=== PATIENT | male | born 1945 | race Caucasian/White ===

== ENCOUNTER → 2021-05-04 02:47 | Outpatient (CLI) | payer MEDICARE, SELFPAY ==
[2021-05-04 17:30] LABS: SARS-CoV-2 RNA PCR Negative
== END ==
PROVIDERS: PCP Nurse Practitioner Adult Health; Visit Provider Nurse Practitioner Adult Health
DX: R09.81 Nasal congestion (principal); Z20.822 Contact with and (suspected) exposure to COVID-19
CPT/HCPCS: C9803; U0003; U0005

== ENCOUNTER 2022-11-11 12:23 | Outpatient (CLI) | payer MEDICARE, SELFPAY ==
--- NOTE | ~2022-11-11 | MR_ITS ---
EXAMINATION: MR shoulder RT wo con DATE: 11/11/2022 13:07 INDICATION: M25.511 - Pain in right shoulder . TECHNIQUE: Magnetic resonance imaging (MRI) of the right shoulder was performed without intravenous c ontrast. Sequences included axial PD-weighted FS FSE, coronal oblique PD-weighted FS FSE and T2-weigh luciano FS FSE, and sagittal oblique T2-weighted FS FSE and T1-weighted FSE. COMPARISON: None. FINDINGS: Coracoacromial arch: No subacromial or subcoracoid narrowing. Moderate AC joint hypertrophy. No significant lateral downsl oping of the type I acromion Rotator cuff: Full-thickness tear of the supraspinatus, with 13 mm retraction. Thinning of the infraspinous tendon. Abnormal signal at the musculotendinous junction of the infraspinous tendon. Infraspinatus and supra spinatus atrophy. Intrasubstance and partial-thickness tears of the subscapularis. Teres minor are in tact. Biceps tendon and glenoid labrum: Partial subluxation of the long head of biceps tendon which dissects into the subscapularis muscle de monstrable type tear of the proximal aspect of the long head of biceps tendon. Considerable degenerat kayla change involving the glenoid labrum. Posterior labral tear. Fluid: No significant fluid collections Bones/cartilage: Moderate subcortical cystic changes in the anterolateral humeral head. No suspicious marrow signal. IMPRESSION: 1. Full-thickness supraspinous tear with 13 mm retraction and fatty atrophy. 2. Intrasubstance type tear of the infraspinatus, with fatty atrophy. 3. Posterior labral tear. 4. Longitudinal type tear of the long head of biceps tendon. 5. Partial long head of biceps tendon subluxation, with partial and intrasubstance type tears of the subscapularis. Reviewed, dictated and finalized at location K. IMPRESSION: 1. Full-thickness supraspinous tear with 13 mm retraction and fatty atrophy. 2. Intrasubstance type tear of the infraspinatus, with fatty atrophy. 3. Posterior labral tear. 4. Longitudinal type tear of the long head of biceps tendon. 5. Partial long head of biceps tendon subluxation, with partial and intrasubsta nce type tears of the subscapularis.
== END 2022-11-11 12:24 | disposition home or self-care (01) ==
PROVIDERS: PCP Family Medicine; Visit Provider Nurse Practitioner
DX: S43.491A Other sprain of right shoulder joint, initial encounter (principal); X58.XXXA Exposure to other specified factors, initial encounter; S46.111A Strain of muscle, fascia and tendon of long head of biceps, right arm, initial encounter; M75.121 Complete rotator cuff tear or rupture of right shoulder, not specified as traumatic
CPT/HCPCS: 73221

== ENCOUNTER 2022-11-30 13:32 | Outpatient (CLI) | payer MEDICARE, SELFPAY ==
--- NOTE | ~2022-11-30 | XR_ITS ---
EXAMINATION: XR lumbar spine 2-3V DATE: 11/30/2022 13:45 INDICATION: Low back pain TECHNIQUE: Anteroposterior and lateral views of the lumbar spine, and cone-down lateral view of the l umbosacral junction were obtained. COMPARISON: Lumbar spine MR dated 04/10/2017 FINDINGS: No significant change in 12 degrees lumbar levoscoliosis and a mild upper lumbar kyphosis. Vertebral body heights are normal. Severe disc height loss at L4-L5 and moderate to severe disc height loss at L2-L3, L3-L4 and L5-S1. Moderate disc height loss at T12-L1 and L1-L2. Moderate to severe lower lumba r predominant facet osteoarthritis. Mild bilateral hip and sacroiliac osteoarthritis. Multiple surgic al clips in the pelvis suggesting bilateral pelvic lymph node dissection. IMPRESSION: 1. No significant change in mild lumbar levoscoliosis with severe spondylosis. Reviewed, dictated and finalized at location A.
[2022-11-30 18:57] LABS: Appearance Urine Clear (Clear); Bilirubin Urine Negative (Negative); Blood Urine Negative (Negative); Color Urine Yellow (Yellow); Glucose Urine UA Negative (Negative); Ketones Urine Negative (Negative); Leukocyte Esterase Ur Negative LEU/UL (NEGATIVE); Nitrate Urine Negative (Negative); Protein Urine Negative (Negative); Specific Grav Ur 1.013 (1.001-1.035); Urobilinogen Urine 0.2 mg/dL (<2.0)
[2022-11-30 19:00] LABS: Add Urine Microscopic? NO
== END 2022-11-30 13:33 | disposition home or self-care (01) ==
PROVIDERS: PCP Family Medicine; Visit Provider Nurse Practitioner
DX: M54.50 Low back pain, unspecified (principal); R10.9 Unspecified abdominal pain
CPT/HCPCS: 72100; 81003

== ENCOUNTER 2023-08-28 13:02 | Outpatient (CLI) | payer MEDICARE, SELFPAY ==
--- NOTE | ~2023-08-28 | XR_ITS ---
EXAMINATION: XR lumbar spine 2-3V DATE: 08/28/2023 13:19 INDICATION: Low back pain TECHNIQUE: Anteroposterior and lateral views of the lumbar spine, and cone-down lateral view of the l umbosacral junction were obtained. COMPARISON: 11/30/2022 FINDINGS: Bone alignment is normal. There is no fracture. The vertebral body heights are maintained. Lumbar levoscoliosis is unchanged. There is severe loss of intervertebral disc space height throughou t the lumbar spine. There is severe facet joint osteoarthritis of the mid and lower lumbar spine. The re is no fracture. Surgical clips are again noted in the pelvis. IMPRESSION: 1. Severe lumbar spondylosis without acute findings or significant interval change. Reviewed, dictated and finalized at location L. 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 Severe lumbar spondylosis without acute findings or significant interval loida nge.
== END 2023-08-28 13:03 | disposition home or self-care (01) ==
PROVIDERS: PCP Family Medicine; Visit Provider Family Medicine
DX: M47.896 Other spondylosis, lumbar region (principal)
CPT/HCPCS: 72100

== ENCOUNTER 2024-12-16 15:35 | Outpatient (CLI) | payer MEDICARE, SELFPAY ==
--- NOTE | ~2024-12-16 | XR_ITS ---
HISTORY: M25.569 - Pain in unspecified knee COMPARISON: None TECHNIQUE: 3 views of the right knee were performed FINDINGS: No acute or subacute fracture. Medial and lateral tibiofemoral joint space narrowing is identified. A large suprapatellar joint effusion is identified. The infrapatellar joint space is clear. Ossification of the insertion of the quadriceps tendon is identified. The lateral femoral notch measu res 1.8 mm, which is abnormally deep for which an anterior cruciate ligament tear is suspected. IMPRESSION: Deep lateral femoral notch sign, as with a large suprapatellar joint effusion for which an anterior cruciate ligament tear is suspected and for which MRI examination is recommended. Reviewed, dictated and finalized at location A. IMPRESSION: Deep lateral femoral notch sign, as with a large suprapatellar slava nt effusion for which an anterior cruciate ligament tear is suspected and for w psychiatrich MRI examination is recommended.
--- NOTE | ~2024-12-16 | XR_ITS ---
HISTORY: M25.569 - Pain in unspecified knee COMPARISON: None TECHNIQUE: 2 views of the right tibia and fibula were performed FINDINGS: No acute or subacute fracture. The alignment is maintained. Disorganized, irregular, periosteal reaction is identified within the proximal shaft of the medial ti yessy, a nonspecific finding. Soft tissues are otherwise unremarkable without radiopaque foreign body or significant calcification. Age-appropriate mineralization. IMPRESSION: No acute fracture or dislocation. Reviewed, dictated and finalized at location A.
== END 2024-12-16 15:36 | disposition home or self-care (01) ==
LOC: MICIMG 15:38
PROVIDERS: PCP Family Medicine; Visit Provider Family Medicine
DX: M25.561 Pain in right knee (principal); M79.604 Pain in right leg
CPT/HCPCS: 73562; 73590

== ENCOUNTER 2024-12-19 15:37 | Outpatient (CLI) | payer MEDICARE, SELFPAY ==
--- NOTE | ~2024-12-19 | US_ITS ---
RIGHT LOWER EXTREMITY VENOUS ULTRASOUND Ordering provider: Miky Martini MD History: . R79.89 - Other specified abnormal findings of blood chemi... . Comparison: None. FINDINGS: --COMMON FEMORAL: Patent and free of thrombus. Normal compressibility, phasic flow and augmentation. --PROXIMAL SUPERFICIAL FEMORAL: Patent and free of thrombus. Normal compressibility, phasic flow and augmentation. --DISTAL SUPERFICIAL FEMORAL: Patent and free of thrombus. Normal compressibility, phasic flow and au gmentation. --POPLITEAL: Patent and free of thrombus. Normal compressibility, phasic flow and augmentation. --POSTERIOR TIBIAL: Patent and free of thrombus. Normal compressibility, phasic flow and augmentation . IMPRESSION: Negative right lower extremity venous US. No deep vein thrombosis. Reviewed, dictated and finalized at location A.
== END 2024-12-19 15:38 | disposition home or self-care (01) ==
PROVIDERS: PCP Family Medicine; Visit Provider Family Medicine
DX: R79.89 Other specified abnormal findings of blood chemistry (principal)
CPT/HCPCS: 93971

== ENCOUNTER 2024-12-29 10:21 | Outpatient (CLI) | payer MEDICARE, SELFPAY ==
--- NOTE | ~2024-12-29 | MR_ITS ---
MRI of the right knee Clinical history: ACL sprain Technique: Coronal proton density and proton density-weighted images, sagittal proton-density and T2 fat-sat images, and axial proton-density fat-saturated images were acquired. Findings: Anterior and posterior cruciate ligaments are intact. Medial collateral ligament and the la teral collateral ligament complex are intact. Popliteus tendon is intact. There is probable tearing of the body segment of the lateral meniscus. Possible focal tear of the maria fernanda e edge of the body segment of the medial meniscus. There is extensive grade IV chondromalacia of the patellar apex extending along the medial facet. The re is mild chondromalacia along lateral patellar facet. There is diffuse moderate to high-grade chond romalacia of the femoral trochlea. There is mild chondral thinning in the medial lateral compartment. Extensor mechanism is intact. Moderate to large joint effusion present. Minimal Pino's cyst. Impression: Probable tear of the body segment lateral meniscus. Questionable focal free edge of the body segment of the medial meniscus. Advanced degenerative change of the patellofemoral compartment, as above. Mild degenerative change of the medial and lateral compartment. Moderate to large joint effusion. Minimal Pino's cyst. Reviewed, dictated and finalized at location . Impression: Probable tear of the body segment lateral meniscus. Questionable focal free edg e of the body segment of the medial meniscus. Advanced degenerative change of the patellofemoral compartment, as above. Mild degenerative change of the medial and lateral compartment. Moderate to large joint effusion. Minimal Pino's cyst.
== END 2024-12-29 10:22 | disposition home or self-care (01) ==
LOC: GOSHIMG 10:21
PROVIDERS: PCP Family Medicine; Visit Provider Family Medicine
DX: M17.11 Unilateral primary osteoarthritis, right knee (principal); M25.461 Effusion, right knee; M71.21 Synovial cyst of popliteal space [Baker], right knee
CPT/HCPCS: 73721

== ENCOUNTER 2025-03-17 08:35 | Outpatient (CLI) | payer MEDICARE, SELFPAY ==
--- OUTSIDE RECORDS SUMMARY | 2025-03-17 09:33 | XMS_ITS | Clinical Summary ---
Author Organization [facility] Address [address] [place] [address] Care Team Providers Care Lunchroom Attendant Name Role Phone Miky Martini MD Primary Care Provider [phone] Allergies No known active allergies Medications fluticasone propionate 50 MCG/ACT nasal spray 1 spray by Each Nostril route as needed. 09/18/2019 Active pravastatin 20 MG tablet Take 1 tablet (20 mg total) by mouth nightly at bedtime. Active BONE STIMULATOR, DME,Indications :Pseudoarthrosi s of cervical spine, initial encounter ([facility]),S/P cervical spinal fusion Wear 4 hours daily. Can break up into multiple sessions totaling 4 hours. 1 Device 10/02/2022 Active benazepril-hydr oCHLOROthiazide (LOTENSIN HCT) 20-12.5 MG tablet Take 1 tablet by mouth daily. 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 Acute right-sided low back pain without sciatica 02/16/2020 Family History Medical History Relation Comments No Known Problems Brother 1 Hypertension Father Stroke Father Diabetes Mother Hypertension Mother Stroke Mother No Known Problems Sister 1 Relation Status Comments Brother 1 Alive Brother 2 Alive Brother 3 Alive Father Mother Sister 1 Alive Sister 2 Alive Son 1 Alive Son 2 Alive Social History Tobacco Use Types Packs/Day Years Used Date Smoking Tobacco: Never Smokeless Tobacco: Never Tobacco Cessation:Counseling Given: Not Answered Alcohol Use Standard Drinks/Week Comments Not Currently 0 (1 standard drink = 0.6 oz pur e alcohol) Exercise Vital Sign Answer Date Recorde d On average, how many days pe r week do you engage in moderate to strenuous exercise (like a brisk walk)? 0 days 02/17/2020 On average, how many minutes do you engage in exercise at this level? 0 min 02/17/2020 Education Answer Date Recorded What is the highest level of school you have completed or the highest degree you have received? High school graduate 02/17/2020 Sex and Gender Information Value Date Recorded Sex Assigned at Not on file Legal Sex Male 3:18 PM CDT Gender Identity Not on file Sexual Orientation Not on file Occupation Industry Job Start Date Job End Date Not on file Not on file Not on file Not on file Last Filed Vital Signs Vital Sign Reading Time Taken Comments Blood Pressure 143/68 01/14/2024 5:16 PM CDT Pulse 73 01/14/2024 5:16 PM CDT Temperature 36.6 C (97.9 F) 01/14/2024 3:45 PM CDT Respiratory Rate 20 01/14/2024 5:16 PM CDT Oxygen Saturation 98% 01/14/2024 5:16 PM CDT Inhaled Oxygen Concentration - - Weight 85.8 kg (189 lb 3.2 oz) 01/14/2024 3:45 P M CDT Height 177.8 cm (5' 10) 01/14/2024 3:45 PM CDT Body Mass Index 27.15 01/14/2024 3:45 PM CDT Plan of Treatment Health Maintenance Due Date Last Done Comments Hepatitis C 1964 DTaP, Tdap and Td Vaccines ( 1 - Tdap) 1965 Pneumococcal Vaccine: 50+ Years (1 of 1 - PCV) 1996 Zoster Vaccines (1 of 2) 1996 Annual Medicare Wellness Visit 11/30/2011 RSV Immunization or 60+ Years (1 - 1-dose 75+ series) 2021 PHQ-2 (Physician [place]) 07/02/2024 COVID-19 Vaccine (3 - 2025-2 6 season) 2025 09/11/2020, 08/13/2020 Meningococcal B Vaccine Aged Out No l onger eligible based on patient's age to complete this topic Meningococcal Vaccine Aged Out No dianna gisela eligible based on patient's age to complete this topic RSV Immunizations Under 20 Months Aged Out No longer eligible b ased on patient's age to complete this topic Goals Goal Patient Goal Type Associated Problems Recent Progress Patient-Stated? Author Health - patient able to perform ADLs independently General No Marylou Das, RN Monitor - able to maintain pain control General No Marylou Das, RN Medical Devices Implanted Type Area Automobile Contract Clerk Device Identifier Shelf Expiration Date Model / Serial / Lot Cadacia Cervical Interbody Size [id number], 7 Deg Implanted:Qty : 1 on 09/14/2021 by Viktor Ortega MD at [facility] N/A: Spine Cervical 12/11/2025 [id number] / / [id number] Viable Bone Matrix - Spine Implanted:Qty : 1 on 09/14/2021 by Viktor Ortega MD at [facility] N/A: Spine Cervical [employer]INO [employer] - DIV NINO HÉCTOR 12/04/2023 [id number] / / [id number] [place] Cervical Interbody, Size [id number], 7 Deg Implanted:Qty : 1 on 09/14/2021 by Viktor Ortega MD at [facility] N/A: Spine Cervical 08/18/2025 [id number] / / [id number] 42mm Plate Implanted:Qty : 1 on 09/14/2021 by Viktor Ortega MD at [facility] N/A: Spine Cervical [id number] / / 4.0x18mm Screws Implanted:Qty : 6 on 09/14/2021 by Viktor Ortega MD at [facility] N/A: Spine Cervical [id number] / / Insurance MEDICARE AETNA Advance Directives * Full Code (Latest Code Status on File) Date Activated Date Inactivated Comments 09/14/2021 3:03 PM 09/15/2021 8:44 PM Care Teams Lunchroom Attendant Relationship Specialty Start Date End Date Miky Martini MD [address] [place] [address] PCP - General FAMILY PRACTICE 09/20/22
--- OUTSIDE RECORDS SUMMARY | 2025-03-17 09:33 | XMS_ITS | Clinical Summary ---
Author Organization [facility] [address] Address [address] [place] [address] Care Team Providers Care Taper Printed Circuit Layout Name Role Phone Annabel Valdes NP Primary Care Provider Allergies Active Allergy Reactions Criticality Noted Date Comments Moxifloxacin Dizziness Low 12/08/2021 Rosuvastatin Muscle pain Medium 12/08/2021 Medications benazepriL-hydr ochlorothiazide (LOTENSIN HCT) 20-12.5 mg per tablet benazepril 20 mg-hydrochloroth iazide 12.5 mg tablet TAKE 2 TABLETS BY MOUTH ONCE DAILY Active pravastatin (PRAVACHOL) 20 mg tablet pravastatin 20 mg tablet TAKE 1 TABLET BY MOUTH EVERY DAY Active Active Problems Problem Noted Date Diagnosed Date Pharyngoesophageal dysphagia 12/10/2021 Dysphonia 12/10/2021 Hypertension 10/14/2009 Surgical History Surgery Date Site/Laterality Comments PROSTATE SURGERY Prostate Surgery - (Added by TW Conv) CERVICAL DISC SURGERY Medical History Medical History Date Comments Prostate cancer (HCC) Hypertension Family History Medical History Relation Name Comments Cancer Father Diabetes Other 1 Diabetes Mellit - (Added by TW Conv) Stroke Other 2 Stroke Syndrome - (Added by TW Conv) Cancer Other 3 Cancer - (Added by TW Conv) Heart disease Other 4 Heart Disease - (Added by TW Conv) Relation Name Status Comments Father Other 1 Other 2 Other 3 Other 4 Social History Tobacco Use Types Packs/Day Years Used Date Smoking Tobacco: Never Smokeless Tobacco: Never Sex and Gender Information Value Date Recorded Sex Assigned at Not on file 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 Gender Identity Not on file Sexual Orientation Not on file Obstetrics History Last Filed Vital Signs Vital Sign Reading Time Taken Comments Blood Pressure - - Pulse - - Temperature - - Respiratory Rate 17 12/08/2021 12:56 PM CDT Oxygen Saturation - - Inhaled Oxygen Concentration - - Weight 88.5 kg (195 lb) 12/08/2021 12:56 PM CDT Height 177.8 cm (5' 10) 12/08/2021 12:56 PM CDT Body Mass Index 27.98 12/08/2021 12:56 PM CDT Plan of Treatment Health Maintenance Due Date Last Done Comments Depression Screening 1945 Fall Risk Assessment 1945 Hepatitis C Screening 1945 DTaP/Tdap/Td Vaccine (1 - Tdap) 1957 Hepatitis B Screening 1964 Pneumococcal vaccine 65+ (1 of 1 - PCV) 1996 Zoster Vaccine (1 of 2) 1996 Well Visit 65+ 11/30/2011 Covid-19 Vaccine ( season) 2025 05/16/2021, 09/11/2020, 08/13/2020 Influenza Vaccine (#1) 2025 Insurance MEDICARE AET SENIOR SUPPLEMENT MEDICARE AETNA SENIOR SUPPLEMENT Care Teams Taper Printed Circuit Layout Relationship Specialty Start Date End Date Annabel Valdes NP PCP - General Nurse Practitioner 12/28/21
--- OUTSIDE RECORDS SUMMARY | 2025-03-17 09:33 | XMS_ITS | Clinical Summary ---
Author Organization [facility] Address [address] [address] Phone Care Team Providers Care Magazine Filler Name Role Phone Latia Iverson APRN Primary Care Provider [phone] Medications polyethylene glycol (MIRALAX) Powder Mix the entire bottle with 64 oz of a clear liquid. Use as directed by the office for colonoscopy prep. 255 g 8 Active Social History Tobacco Use Types Packs/Day Years Used Date Smoking Tobacco: Never Assessed Sex and Gender Information Value Date Recorded Sex Assigned at Not on file Legal Sex Male 12:08 AM CDT Gender Identity Not on file Sexual Orientation Not on file Plan of Treatment Health Maintenance Due Date Last Done Comments Hepatitis C Virus (HCV) Screening 1945 TdaP Immunization 1945 Pneumococcal Immunization (5 0+ years) (1 of 1 - PCV) 1996 Zoster Immunization (1 of 2) 1996 Respiratory Syncytial Virus (RSV) Immunization (Adult) (1 - 1-dose 75+ series) 2021 SARS-COV-2 Immunization ( - 2023- season) 2024 Influenza Immunization (#1) 2025 Colonoscopy Discontinued 11/21/2017 Colorectal Cancer Screening Discontinued Cologuard Discontinued Hepatitis B Immunization Aged Out No longer eligible based on patient's age to complete this topic Human Papillomavirus (HPV) Immunization Aged Out No longer eligible b ased on patient's age to complete this topic Immunochemical Fecal Occult Blood Discontinued Meningococcal Immunization (ACWY) Aged Out No longer eligible based on patient's age to complete this topic Rotavirus Immunization Aged Out No lo nger eligible based on patient's age to complete this topic Procedures Procedure Name Priority Date/Time Associated Diagnosis Comments COLONOSCOPY Routine 11/21/2017 from Last 3 Months or Most Recently Relevant to Health Maintenance Results * COLONOSCOPY (11/21/2017) Boom Radha Ludwigroberto DO PROCEDURE/MINOR SURGICAL ORDERA BLES Final Result from Last 3 Months or Most Recently Relevant to Health Maintenance Insurance MEDICARE Care Teams Magazine Filler Relationship Specialty Start Date End Date Latia Iverson APRN PCP - General Advanced Practice Nurse 07/24/17
[2025-03-17 19:30] LABS: Alanine Aminotransferase 38 U/L (6-50); Albumin Level 4.3 g/dL (3.5-5.1); Alkaline Phosphatase 59 U/L (38-126); Anion Gap 7 mmol/L (4-12); Aspartate Amino Transferase 53 U/L (17-59); Bilirubin,Total 0.6 mg/dL (0.2-1.3); Blood Urea Nitrogen 18 mg/dL (9-20); Calcium 9.4 mg/dL (8.4-10.2); Carbon Dioxide 28 mmol/L (22-30); Chloride 101 mmol/L (98-107); Estimated Glomerular Filt Rate > 60; Glucose 92 mg/dL (65-110); Potassium 5.1 mmol/L (3.4-5.0); Sodium 136 mmol/L (137-145); Total Protein 7.1 g/dL (6.3-8.2)
[2025-03-17 19:35] LABS: Hematocrit 42.0 % (42.0-52.0); Hemoglobin 13.6 g/dL (14.0-18.0); Immature Granulocyte Percent A 0.6 % (0-0.5); Lymphocytes Absolute Auto 1.88 K/mm3 (0.9-3.2); Mean Corpuscular HGB Conc 32.4 g/dl (32-36); Mean Corpuscular Hemoglobin 32.0 pg (26-34); Mean Corpuscular Volume 98.8 fl (80-100); Nucleated Red Blood Cells Absolute Auto 0.000 K/mm3 (0.0-0.012); Nucleated Red Blood Cells Perc 0.0 % (0.0-0.2); Platelet Count Result 199 k/mm3 (150-375); Red Blood Count 4.25 M/mm3 (4.6-6.20); White Blood Count 6.9 K/mm3 (4.5-10.0)
[2025-03-17 20:46] LABS: Prostate Specific Antigen < 0.1 ng/mL (< OR = 4.0)
== END 2025-03-17 08:36 | disposition home or self-care (01) ==
PROVIDERS: PCP Family Medicine; Visit Provider Family Medicine
DX: Z12.5 Encounter for screening for malignant neoplasm of prostate (principal); E78.5 Hyperlipidemia, unspecified; I10 Essential (primary) hypertension; E55.9 Vitamin D deficiency, unspecified; M25.569 Pain in unspecified knee
CPT/HCPCS: 36415; 80053; 82306; 84153; 85025; G0103